=== PATIENT | male | born 1985 | race Two or more races ===

== ENCOUNTER 2019-04-05 06:07 | Day surgery (SDC) | payer MEDICAID ==
[2019-04-01 11:34] LABS: Basophils # (auto) 0.1 uL; Eosinophils # (auto) 0.6 uL; Monocytes # (auto) 0.8 uL
[2019-04-01 11:35] LABS: Basophils % (auto) 1.3 % (0.0-2.0); Eosinophils % (auto) 8.1 % (0.0-7.0); Hematocrit 54.4 % (41.0-53.0); Hemoglobin 18.1 g/dL (13.5-17.5); Lymphocytes % (auto) 28.1 % (10.0-50.0); Mean Corpuscular Hemoglobin 28.2 pg (28.0-32.0); Mean Corpuscular Hgb Conc. 33.4 g/dL (32.0-36.0); Mean Corpuscular Volume 84.7 fL (80.0-100.0); Monocytes % (auto) 11.9 % (0.0-12.0); Neutrophils # (auto) 3.5 uL; Neutrophils % (auto) 50.6 % (37.0-80.0); Nucleated Red Blood Cells % 0.2 %; Platelet Count (auto) 286 10^3/uL (140-450); Red Blood Cells 6.42 10^6/uL (4.5-5.90); Red Cell Distribution Width 14.5 % (11.8-14.3)
[2019-04-01 11:47] LABS: INR 0.96 (0.9-1.15); Partial Thromboplastin Time 27.1 sec (23.64-32.05)
[2019-04-01 11:49] LABS: Urine Bacteria NONE SEEN /hpf (None Seen); Urine Blood TRACE /uL (Negative); Urine Specific Gravity 1.021 (1.001-1.035); Urine WBC 89 /hpf (0 - 3)
[2019-04-01 11:58] LABS: Albumin 4.1 g/dL (3.4-5.0); Calcium 8.7 mg/dL (8.5-10.1); Potassium 5.1 mmol/L (3.5-5.1)
[2019-04-01 12:02] LABS: Bilirubin, Total 0.7 mg/dL (0.2-1.0); Total Protein 7.9 g/dL (6.4-8.2)
[~2019-04-05] VITALS: Ht 175.3 cm; Wt 83.9 kg
[2019-04-05] MEDS ORDERED: IOHEXOL 300 MG/ML 100ML BOTTLE IJ ONE (07:06)
[2019-04-05] MEDS ORDERED: CIPROFLOXACIN 400MG/200ML 200 ML IV ONE (07:42)
[2019-04-05] MEDS ORDERED: fentaNYL CITRATE 100 MCG/2 ML VL ONE (07:56)
[2019-04-05] MEDS ORDERED: LIDOCAINE HCL 2% TOP JELLY 5ML TOP ONE (07:57)
[2019-04-05] MEDS ORDERED: PROPOFOL 10 MG/ML 20 ML IV ONE (08:05)
[2019-04-05] MEDS ORDERED: MIDAZOLAM HCL 1MG/1ML-2 ML VIAL ONE (08:06)
[2019-04-05] MEDS ORDERED: LIDOCAINE 2% JELLY 11ml (GLYDO) ONE (09:09)
[2019-04-05] MEDS ORDERED: ONDANSETRON HCL 4 MG/2 ML VIAL IM ONE (09:45)
[2019-04-05] MEDS ORDERED: ONDANSETRON HCL 4 MG/2 ML VIAL ONE (09:46)
[2019-04-05 10:16] VITALS: BP 122/94
== END 2019-04-05 10:28 | disposition home or self-care (01) ==
LOC: SUR 06:07
PROVIDERS: ATTEND Urology
DX: N20.1 Calculus of ureter (principal); Z98.890 Other specified postprocedural states
CPT/HCPCS: 36415; 52353; 74018; 80053; 81001; 82360; 85025; 85610; 85730; C1769; J0744; J2250; J2405; J2704; J3010; Q9967; 76000